=== PATIENT | female | born 1990 | race Two or more races ===

== ENCOUNTER 2025-03-13 20:04 | Emergency (ER) | payer MEDICAID, SELFPAY ==
[2025-03-13 20:23] VITALS: BP 141/94; PULSE 112; RESP 18; TEMP 36.9; O2SAT 99
--- NOTE | 2025-03-13 20:50 | EDNOTE_ITS ---
ED Abdominal Pain RME/HPI General Chief Complaint: Abdominal Pain Stated complaint: LOWER ABD PAIN X15 MINUTES Time seen by provider: 03/13/25 20:29 Arrival date/time: 03/13/25 20:04 This is a 34-year-old female that comes into the emergency room with complaints of lower abdominal pain diffusely that started prior to arrival. Patient currently on menstrual cycle. Patient states pain started after she was evicted from her home. Patient states she has been very stressed out. Patient reports she has had this abdominal pain in the past. Patient denies fever, nausea, vomiting, diarrhea. Patient denies any sick contacts at home. Related Data Previous Rx's ?Medication ?Instructions ?Recorded metformin 500 mg tablet 500 mg PO BIDWMEAL #60 tabs 02/03/24 ibuprofen 800 mg tablet 800 mg PO Q6H PRN pain #14 t abs 03/13/25 Allergies Allergy/AdvReac Type Severity Reaction Status Date / Time Penicillins Allergy Intermediate Rash Verified 03/13/25 20:04 Review of Systems Review of Systems Systems Reviewed: All systems reviewed, normal except as documented Past Medical History Past Medical History NEUROLOGIC: Negative Seizures CARDIAC: Positive Atrial Fibrillation and Hypercholesterolemia; Negative Cardiac Disorders or Congestive Heart Failure RESPIRATORY: Negative Chronic Obstructive Pulmonary Disease (COPD) or Asthma GENITOURINARY: Positive Kidney Stones; Negative Renal Disease REPRODUCTIVE: Positive Previous Pregnancies ENDOCRINE: Positive Endocrine Disorders and Diabetes Mellitus Type 2; Negative Diabetes Mellitus Type 1 HEMATOLOGIC: Negative Blood Disorders, Anemia or Sickle Cell Disease PSYCHO/SOCIAL: Negative Depression, Anxiety or Depression OTHER HISTORY: Positive Ovarian Cancer Family History OTHER FAMILY HX: Reviewed Surgical History SURGICAL: Positive Section; Negative Cardiac Surgery, Abdominal Surgery or Joint Replacement Social History SOCIAL: Denies SMOKING STATUS: Never smoker SUBSTANCE USE: does not use ED Exam Narrative Physical exam: VITAL SIGNS: Reviewed. GENERAL APPEARANCE: Alert and interactive, follows commands, anxious tearful HEAD AND FACE: Non-traumatic. ENT: PERRL, conjuctiva pink and clear, eyelid no trauma, Mucous membrane moist. NECK: Supple, nontender, no nuchal rigidity. CHEST: No tenderness, no crepitus, no paradoxical movement, no retractions. LUNGS: Clear, well ventilated, symmetric, no rales, no wheezing, no rhonchi, no stridor, good breath sounds bilaterally. HEART: Regular rate, regular rhythm, no murmur, no gallops. ABDOMEN: Soft, nondistended, no guarding, nontender NEUROLOGICAL: Gross motor function intact sensory function intact, Appropriate for age. MUSCULOSKELETAL: low back nontender, full range of motion. EXTREMITIES: No redness no swelling no skin breakdown on bilateral foot and leg. Distal neurovascular status intact bilateral foot SKIN: Color pink, dry, no rash, no lacerations, no abrasions, no contusions. Course Quality Measures none Orders Category Date Time Status CBC Stat Lab 03/13/25 21:00 Completed Comprehensive Metabolic Panel Stat Lab 03/13/25 21:00 Completed HCG Qualitative,Urine Stat Lab 03/13/25 21:55 Completed Lipase Stat Lab 03/13/25 21:00 Completed Urinalysis, C/S if Indicated Stat Lab 03/13/25 21:55 Completed HYDROcodone*/APAP 5/325 [Peterson 5/325] Med 03/13/25 20:44 Discontinued 1 tab PO X1 ONE HYDROcodone*/APAP 5/325 [Peterson 5/325] Med 03/13/25 23:00 Discontinued 1 tab PO X1 ONE Ketorolac Inj [Toradol Inj] Med 03/13/25 23:00 Discontinued 60 mg IM X1 ONE Ondansetron Odt [Zofran Odt] Med 03/13/25 20:44 Discontinued 4 mg PO X1 ONE cefTRIAXone [Rocephin] 1,000 mg Med 03/13/25 23:00 Discontinued Lidocaine 1% 20 ml [Xylocaine 1% 20 ML] 2.1 ml IM X1 Vital Signs Vital signs: Vital Signs Temperature 98.4 F 03/13/25 20:23 Pulse Rate 112 H 03/13/25 20:23 Respiratory Rate 18 03/13/25 20:23 Blood Pressure 141/94 H 03/13/25 20:23 Pulse Oximetry (%) 99 03/13/25 20:23 Oxygen Delivery Method Room Air 03/13/25 20:23 Abdominal Pain MDM MDM Narrative MDM Narrative:: Patient currently on menstrual cycle. Labs reviewed. CBC unremarkable. Patient's hemoglobin is 10.8 hematocrit 32.8 MCV is 77. BMP unremarkable although alk phos is 128. Will need to have this rechecked. With primary provider. Lipase 33. Urine shows some RBCs leukocyte Estrace and white blood cells. Will send a urine culture. Patient was given initially Zofran and Peterson. Patient states pain was better but was still having pain. I ordered Toradol and another dose of Peterson. Patient was be given a dose of Rocephin. And sent home. Patient told to follow-up with primary provider in 1 to 2 days. Back to the emergency room if symptoms change or worsen. Patient data External records reviewed:: [facility] previous records Clinical information provided by:: patient Social determinants that could affect healthcare access:: none Patient has the following chronic illnesses:: none How is presenting disease/condition affected by chronic disease/condition?: no chronic disease Evaluation data The following diagnostics were reviewed and interpreted by me:: lab results Lab and/or radiology exams considered but not ordered:: none Interpretation Summary: see note Medications / Prescriptions Medications or Prescriptions considered but not ordered:: none Medication administrations:: Medication Administration History Discontinued Medications Hydrocodone Bitart/Acetaminophen (Hydrocodone/Apap 5/325 Tablet) 1 tab PO X1 ONE Stop: 03/13/25 20:45 Last Admin: 03/13/25 20:54 Dose: 1 tab Documented By: GISELA Hydrocodone Bitart/Acetaminophen (Hydrocodone/Apap 5/325 Tablet) 1 tab PO X1 ONE Stop: 03/13/25 23:01 Last Admin: 03/13/25 23:13 Dose: 1 tab Documented By: ANDRES Ceftriaxone Sodium 1,000 mg/ (Lidocaine HCl 2.1 ml) 0 mg IM X1 ONE Stop: 03/13/25 23:01 Last Admin: 03/13/25 23:14 Dose: 1,000 mg Documented By: ANDRES Ketorolac Tromethamine (Ketorolac Inj 60 Mg/2 Ml Vial) 60 mg IM X1 ONE Stop: 03/13/25 23:01 Last Admin: 03/13/25 23:14 Dose: 60 mg Documented By: ANDRES Ondansetron HCl (Ondansetron Odt 4 Mg Tabrap) 4 mg PO X1 ONE; Protocol Stop: 03/13/25 20:45 Last Admin: 03/13/25 20:54 Dose: 4 mg Documented By: GISELA see [facility] Consultations Consultation(s) initiated? (list below): No Diagnosis Differential diagnosis abdominal pain: abdominal pain, acute appendicitis, calculus of kidney and gastroenteritis Most likely diagnosis given after review of the tests above:: uti Admission Indicated Admission indicated?: not indicated Admission Request Was there a request for admission?: No Disposition Plan Disposition Plan: Discharge Discharge Attestation Discharge Attestation: The patient and all family members were given an opportunity to ask questions and understood the discharge instructions. Discharge instructions specifically effects, indications for sooner follow up or return to the emergency department, and the expected course of current diagnosis. Patient condition: Stable Discharge Plan Plan Patient Disposition: HOME (Self Care) Patient condition on transfer: Stable Prescriptions/Referrals Prescriptions/Med Rec: New ibuprofen 800 mg tablet 800 mg PO Q6H PRN (Reason: pain) Qty: 14 0RF No Action metformin 500 mg tablet 500 mg PO BIDWMEAL Qty: 60 1RF Referrals: Tuyet Sharpe FNP [Primary Care Provider] - In 1 week Problem List Clinical Impression: UTI (urinary tract infection), Alkaline phosphatase elevation Patient/Caregiver Discharge Instructions Discharge Activity: activity as tolerated Education Materials: ED CYSTITIS Female Adult Additional Instructions: Radha un sissy con coello medico de cabecera en las proximas 24-48 horas. Regrese a la idania de emergencias si hay evidencia de que los signos o sintomas empeoran. Print Language: Iranian Stand Alone Forms: Dasha Award Info., Patient Portal Info Letter AMY/BRI Supervising Physician POOL Supervising Physician: dennise
[2025-03-13] MEDS: ONDANSETRON ODT 4 MG TABRAP PO (20:54)
[2025-03-13] MEDS: HYDROcodone/APAP 5/325 TABLET 1 TAB PO ×2 (20:54→23:13)
[2025-03-13 21:07] LABS: Basophils # (Auto) 0.0 Thou/mm3 (0.0-0.2); Basophils % (Auto) 0 % (0-2.5); Eosinophils # (Auto) 0.3 Thou/mm3 (0.0-0.5); Eosinophils % (Auto) 3 % (0-10); Hematocrit 32.8 % (36.0-46.0); Hemoglobin 10.8 g/dL (12.0-16.0); Immature Granulocytes Auto 0.02 Thou/mm3 (0.00-0.00); Lymphocytes # (Auto) 3.5 Thou/mm3 (1.0-4.8); Lymphocytes % (Auto) 35 % (10-50); Mean Corpuscular HGB Conc 32.9 g/dl (31.0-37.0); Mean Corpuscular Hemoglobin 25.4 pg (25.0-35.0); Mean Corpuscular Volume 77 fL (80-100); Monocytes # (Auto) 0.4 Thou/mm3 (0.0-0.8); Monocytes % (Auto) 4 % (0-12); Neutrophils # (Auto) 5.8 Thou/mm3 (1.8-7.7); Neutrophils % (Auto) 57 % (37-80); Nucleated Red Blood Cell # 0.00 Thou/mm3 (0.00-0.00); Nucleated Red Blood Cell % 0 /100 WBC (0); Platelet Count 412 Thou/mm3 (140-440); RDW Standard Deviation 42.2 fL (36.4-46.3); Red Blood Count 4.25 Miln/mm3 (4.00-5.20); White Blood Count 10.0 Thou/mm3 (3.6-11.0)
[2025-03-13 22:03] LABS: Alanine Aminotransferase 12 U/L (10-49); Albumin, Serum 4.6 gm/dL (3.5-5.0); Albumin/Globulin Ratio 1.6 (1.2-2.2); Alkaline Phosphatase 128 U/L (46-116); Anion Gap 12 (7-16); Aspartate Amino Transferase 12 U/L (0-34); BUN/Creatinine Ratio 12 Ratio (12-20); Bilirubin,Total 0.4 mg/dL (0.3-1.2); Blood Urea Nitrogen 11 mg/dL (9-23); Calcium 9.9 mg/dL (8.3-10.6); Calcium (Corrected) 9.9 mg/dL (8.5-10.1); Carbon Dioxide 19.9 mMol/L (20.0-31.0); Chloride 109 mMol/L (98-107); Creatinine (Component) 0.9 mg/dL (0.6-1.3); Globulin 2.8 gm/dL (2.3-3.5); Glucose 141 mg/dL (74-106); Lipase 33 U/L (12-53); Osmolality,Calculated 282 (275-295); Potassium 3.5 mMol/L (3.4-5.1); Sodium 141 mMol/L (136-145); Total Protein 7.4 gm/dL (5.7-8.2); eGFR > 60 See Note
[2025-03-13 22:09] LABS: Collection Type, Urine Voided
[2025-03-13 22:16] LABS: Bilirubin,Urine Negative (Negative); Blood,Urine 3+ (Negative); Clarity,Urine Clear (Clear/Hazy); Color,Urine Lt-Yellow (Lt Yel-Yel); Culture Indicated,Urine Not Indicated; Glucose, Urine Negative (Negative); Ketones,Urine 1+ (Negative); Leukocyte Esterase,Urine Positive (Negative); Nitrite,Urine Negative (Negative); PH,Urine 8.0 (5.0-7.0); Protein,Urine Negative (Neg - Trace); RBC,Urine 17 /hpf (0-3); Specific Gravity,Urine 1.013 (1.001-1.035); Squamous Epithelial Cell,Urine 3 /hpf (0-5); Urobilinogen,Urine Negative mg/dL (0.0-1.0); WBC,Urine 8 /hpf (0-5)
[2025-03-13 22:24] LABS: HCG Qualitative,Urine Negative
[2025-03-13 22:59] VITALS: BP 129/84; PULSE 58; RESP 24; TEMP 36.4; O2SAT 100
[2025-03-13] MEDS: KETOROLAC INJ 60 MG/2 ML VIAL IM (23:14)
[2025-03-13] MEDS: cefTRIAXone 1,000 MG, LIDOCAINE 1% 20 ML 2.1 ML IM (23:14)
== END 2025-03-13 23:35 | disposition home or self-care (01) ==
PROVIDERS: Nurse Practitioner Family; Emergency Provider Emergency Medicine; PCP Nurse Practitioner Family
DX: N39.0 Urinary tract infection, site not specified (principal); R74.8 Abnormal levels of other serum enzymes
CPT/HCPCS: 36415; 80053; 81001; 81025; 83690; 85025; 96372; 99283; J0696; J1885; J3490; Q0162; A9270